=== PATIENT | female | born 1985 | race African-American/Black ===

== ENCOUNTER 2017-06-09 09:34 | Emergency (ER) | payer MEDICAID ==
[~2017-06-09] VITALS: Ht 160 cm; Wt 94.0 kg
[2017-06-09 09:40] VITALS: BP 188/62
[2017-06-09] MEDS ORDERED: SODIUM CHLORIDE 0.9% 1,000 ML IV ONE (10:40)
[2017-06-09] MEDS ORDERED: FAMOTIDINE 20MG/2ML VIAL IV ONE (10:45)
[2017-06-09] MEDS ORDERED: ONDANSETRON HCL 4MG/2ML VIAL IV ONE (10:45)
[2017-06-09 11:08] LABS: BASOPHILS % 0.5 % (0.0-2.0); EOSINOPHILS % 0.5 % (0.0-5.0); HEMATOCRIT. 33.4 % (36.0-48.0); LYMPHOCYTES % 33.4 % (20.0-50.0); MEAN CORPUSCULAR HEMOGLOBIN 27.2 pg (28.0-32.0); MEAN CORPUSCULAR VOLUME 82.8 fL (81.0-99.0); MEAN PLATELET VOLUME 8.8 fl (7.4-10.4); MONOCYTES % 7.2 % (2.0-8.0); NEUTROPHILS % 58.4 % (40.0-76.0); PLATELET 168 x1000/uL (130-400); RED BLOOD CELL COUNT 4.03 mill/uL (4.2-5.4); RED CELL DISTRIBUTION WIDTH 14.2 % (11.6-14.6)
[2017-06-09 11:29] LABS: CARBON DIOXIDE 26 mEq/L (21-32); CHLORIDE 106 mEq/L (98-107)
[2017-06-09 11:43] LABS: B-HCG QUANTITATIVE 157506 mIU/mL (<3)
[2017-06-09 12:20] LABS: CLARITY URINE CLEAR (CLEAR); COLOR URINE YELLOW (YELLOW); GLUCOSE URINE NEGATIVE (NEGATIVE); KETONES URINE NEGATIVE (NEGATIVE); LEUKOCYTE ESTERASE URINE NEGATIVE (NEGATIVE); NITRITE URINE NEGATIVE (NEGATIVE); OCCULT BLOOD URINE NEGATIVE (NEGATIVE); PROTEIN URINE NEGATIVE (NEGATIVE); SPECIFIC GRAVITY URINE 1.026 (1.005-1.030); UROBILINOGEN URINE 0.2 E.U./dL (0.2-1.0)
== END 2017-06-09 14:30 | disposition home or self-care (01) ==
LOC: ER 10:55
DX: O20.0 Threatened abortion (principal); R11.2 Nausea with vomiting, unspecified; R53.1 Weakness; O26.891 Other specified pregnancy related conditions, first trimester; Z3A.10 10 weeks gestation of pregnancy
CPT/HCPCS: 36415; 76801; 76817; 80053; 81003; 81025; 84443; 84702; 85025; 93005; 96361; 96374; 96375; 99285; J2405; J3490; J7030; Z7610

== ENCOUNTER 2018-10-21 10:59 | Emergency (ER) | payer MEDICAID ==
[~2018-10-21] VITALS: Ht 162.6 cm; Wt 105.0 kg
[2018-10-21 13:02] LABS: BASOPHILS % 0.5 % (0.0-2.0); EOSINOPHILS % 0.7 % (0.0-5.0); HEMATOCRIT. 36.7 % (36.0-48.0); HEMOGLOBIN. 12.2 g/dL (12.0-16.0); LYMPHOCYTES % 30.2 % (20.0-50.0); MEAN CORPUSCULAR HEMOGLOBIN 28.9 pg (28.0-32.0); MEAN CORPUSCULAR VOLUME 87.2 fL (81.0-99.0); MEAN PLATELET VOLUME 8.9 fl (7.4-10.4); MONOCYTES % 7.5 % (2.0-8.0); NEUTROPHILS % 61.1 % (40.0-76.0); PLATELET 168 x1000/uL (130-400); RED BLOOD CELL COUNT 4.21 mill/uL (4.2-5.4); RED CELL DISTRIBUTION WIDTH 13.3 % (11.6-14.6)
[2018-10-21 13:08] LABS: CHLORIDE 106 mEq/L (98-107)
[2018-10-21 13:33] LABS: B-HCG QUANTITATIVE 26863 mIU/mL (<3)
[2018-10-21 14:30] VITALS: BP 125/74
== END 2018-10-21 14:47 | disposition home or self-care (01) ==
LOC: ER 10:59
DX: O26.892 Other specified pregnancy related conditions, second trimester (principal); O20.0 Threatened abortion; Z3A.17 17 weeks gestation of pregnancy
CPT/HCPCS: 36415; 76805; 84702; 86850; 86900; 99284